=== PATIENT | male | born 1990 | race Caucasian/White ===

== ENCOUNTER 2018-10-12 12:58 | Emergency (ER) | payer BC, OTHER ==
[2018-10-12] MEDS ORDERED: Sodium Chloride 0.9% 1,000 ML IV ONE (13:23)
[2018-10-12 14:28] LABS: BLOOD UREA NITROGEN,BUN 14 mg/dL (7.0-18.0); CARBON DIOXIDE,CO2 30.1 mmol/L (21.0-32.0); CHLORIDE,CL 106 mmol/L (98-107); GLUCOSE RANDOM 85 mg/dL (74-106); LIPASE 81 U/L (73-393); POTASSIUM,K 4.1 mmol/L (3.5-5.1); SODIUM,NA 142 mmol/L (136-148)
[2018-10-12 14:40] VITALS: BP 107/60; PULSE 74
[2018-10-12] MEDS ORDERED: Iopamidol 755 Mg/ML 100 ML Bottle IVPUSH ONE (15:04)
--- NOTE | 2018-10-12 15:17 | CT ---
HISTORY: Right lower quadrant pain. Rectal bleeding. TECHNIQUE: Intravenous contrast enhanced CT of the abdomen and pelvis. 100 mL of Isovue-370 intravenous contrast administered. COMPARISON: No prior. FINDINGS: There is fatty infiltration of the liver. There is no focal liver mass. No biliary ductal dilatation. Gallbladder does not appear overly distended. Mild splenomegaly the spleen measuring 14 cm. Adrenal glands normal. No focal pancreatic abnormality. Symmetric nephrograms. No renal mass or hydronephrosis. Urinary bladder is not optimally evaluated by CT but appears grossly unremarkable. - No small bowel obstruction. Appendix is absent. No diverticulitis or definite colitis. No fluid collection or free air. No abdominal aortic aneurysm. Small mesenteric lymph nodes are likely reactive. - Minor subpleural atelectasis within the lung bases. - No acute bony abnormality. IMPRESSION: 1. No specific identified cause of the patient`s symptoms. 2. Appendix is absent. 3. Mild splenomegaly. 4. Mild fatty infiltration of the liver. 5. Small mesenteric lymph nodes are likely reactive. Dictated by Faheem Stallings MD @ 10/12/2018 3:14:49 PM Please note that all CT scans at this facility use dose modulation, iterative reconstruction, and/or weight-based dosing when appropriate to reduce radiation dose to as low as reasonably achievable. Dictated by: Faheem Stallings MD @ 10/12/2018 15:14:55 (Electronically Signed)
--- NOTE | 2018-10-12 15:40 | EDM.PDOC ---
ED HPI GENERAL MEDICAL PROBLEM - General Chief Complaint: Gastrointestinal Problem Stated Complaint: STOMACH PROBLEMS Time Seen by Provider: 10/12/18 13:06 Source of Information: Reports: Patient History Limitations: Reports: No Limitations - History of Present Illness INITIAL COMMENTS - FREE TEXT/NARRATIVE: HISTORY AND PHYSICAL: History of present illness: Patient is a 28-year-old male presents to the ED today for concern of blood in the stool and vague lower abdominal pain. Patient states about 2 days ago he had one episode of bright red blood in his stool but that it had gone away. Patient states just a few hours prior to arrival to the ED he's been having vague nonsevere 2 out of 10 lower abdominal pain. Patient states he then had a more significant episode of blood in his stool today which gave him anxiety so he came to the ED. Patient states the blood in his stool was bright red and he is unable to quantify how much but states that it was a large amount for him. Patient states the consistency and frequency of his bowel movements has been normal per his usual. Patient denies any health history and states he has never had this occur before. Patient denies any other symptoms or concerns. Patient has had a history of appendectomy. Patient denies fever, chills, chest pain, shortness of breath, or cough. Denies headache, neck stiff ness, change in vision, syncope, or near syncope. Denies nausea, vomiting, diarrhea, constipation, or dysuria. Has not noted any blood in urine. Patient has been eating and drinking appropriately. Review of systems: As per history of present illness and below otherwise all systems reviewed and negative. Past medical history: As per history of present illness and as reviewed below otherwise noncontributory. Surgical history: As per history of present illness and as reviewed below otherwise noncontributory. Social history: See social history for further information Family history: As per history of present illness and as reviewed below otherwise noncontributory. Physical exam: General: Patient is alert, oriented, and in no acute distress. Patient sitting comfortably on exam table. HEENT: Atraumatic, normocephalic, pupils equal and reactive bilaterally, negative for conjunctival pallor or scleral icterus, mucous membranes moist, TMs normal bilaterally, throat clear, neck supple, nontender, trachea midline. No drooling or trismus noted. No meningeal signs. No hot potato voice noted. Lungs: Clear to auscultation, breath sounds equal bilaterally, chest nontender. Heart: S1S2, regular rate and rhythm without overt murmur Abdomen: Soft, nondistended, nontender. Negative for masses or hepatosplenomegaly. Negative for costovertebral tenderness. Pelvis: Stable nontender. Genitourinary: Deferred. Rectal: Sphincter tone intact. No masses noted of the rectum. No obvious external hemorrhoids visualized. Patient does have gross bright red blood surrounding the rectum. No internal hemorrhoid noted. Positive Hemoccult Skin: Intact, warm, dry. No lesions or rashes noted. Extremities: Atraumatic, negative for cords or calf pain. Neurovascular unremarkable. Neuro: Awake, alert, oriented. Cranial nerves II through XII unremarkable. Cerebellum unremarkable. Motor and sensory unremarkable throughout. Exam nonfocal. Notes: Dr. Taylor verbally involved in patient care. Discussed the importance for follow-up with general surgery. Official referral has been placed to the patient in the ED. Voices understanding and is agreeable to plan of care. Denies any further questions or concerns at this time. Diagnostics: CBC, CMP, UA, PT/INR, Shaw[place], abdominal pelvic CT, lipase, Hemoccult Therapeutics: Saline Prescription: None Impression: Roe blood in stool Lower abdominal pain, unspecified Mild splenomegaly via imaging Mild fatty infiltrate of liver via imaging Mesenteric lymphadenitis, unspecified, via imaging Plan: 1. You can use Tylenol as directed for pain and discomfort. 2. Follow-up with general surgery and her primary care provider as discussed. The information for General surgery has been provided above for you; call number above for appointment. 3. Return to the ED as needed and as discussed. Definitive disposition and diagnosis as appropriate pending reevaluation and review of above. Lower Abdominal Pain Score (Numeric/FACES): 4 - Related Data Allergies Allergy/AdvReac Type Severity Reaction Status Date / Time No Known Allergies Allergy Verified 10/12/18 13:14 Home Meds: Home Meds . [No Known Home Meds] 10/12/18 [History] Past Medical History HEENT History: Reports: Impaired Vision Other HEENT History: wears glasses Cardiovascular History: Reports: None Respiratory History: Reports: None Gastrointestinal History: Reports: None Genitourinary History: Reports: None Musculoskeletal History: Reports: None Other Musculoskeletal History: ACL Neurological History: Reports: None Psychiatric History: Reports: None Endocrine/Metabolic History: Reports: None Hematologic History: Reports: None Immunologic History: Reports: None Oncologic (Cancer) History: Reports: None Dermatologic History: Reports: None - Infectious Disease History Infectious Disease History: Reports: Chicken Pox - Past Surgical History Head Surgeries/Procedures: Reports: None HEENT Surgical History: Reports: Other (See Below) Musculoskeletal Surgical History: Reports: Other (See Below) Social & Family History - Family History Family Medical History: Noncontributory - Tobacco Use Smoking Status *Q: Current Every Day Smoker Years of Tobacco use: 5 Packs/Tins Daily: 1 - Caffeine Use Caffeine Use: Reports: Soda - Recreational Drug Use Recreational Drug Use: No ED ROS GENERAL - Review of Systems Review Of Systems: ROS reveals no pertinent complaints other than HPI. ED EXAM, GENERAL - Physical Exam Exam: See Below (See dictation) Course - Vital Signs Last Recorded V/S: Last Vital Signs Temp 36.0 C 10/12/18 14:39 Pulse 74 10/12/18 14:39 Resp 18 10/12/18 14:39 BP 107/60 10/12/18 14:39 Pulse Ox 99 10/12/18 14:39 - Orders/Labs/Meds Orders: Active Orders 24 hr Category Date Time Status Hemoccult [Fecal Occult Blood Collection] [RC] Care 10/12/18 13:24 Active ASDIRECTED MONONUCLEOSIS SCREEN [CHEM] Stat Lab 10/12/18 15:30 Ordered Labs: Laboratory Tests 10/12/18 10/12/18 10/12/18 Range/Units 13:42 13:58 13:58 WBC 6.73 (4.0-11.0) K/uL RBC 5.16 (4.50-5.90) M/uL Hgb 16.0 (13.0-17.0) g/dL Hct 43.5 (38.0-50.0) % MCV 84.3 (80.0-98.0) fL MCH 31.0 (27.0-32.0) pg MCHC 36.8 (31.0-37.0) g/dL RDW Std Deviation 40.9 (28.0-62.0) fl RDW Coeff of Pearl 14 (11.0-15.0) % Plt Count 245 (150-400) K/uL MPV 10.00 (7.40-12.00) fL Neut % (Auto) 55.8 (48.0-80.0) % Lymph % (Auto) 35.8 (16.0-40.0) % [place] % (Auto) 6.5 (0.0-15.0) % Eos % (Auto) 1.5 (0.0-7.0) % Baso % (Auto) 0.4 (0.0-1.5) % Neut # (Auto) 3.8 (1.4-5.7) K/uL Lymph # (Auto) 2.4 (0.6-2.4) K/uL Shaw[place] # (Auto) 0.4 (0.0-0.8) K/uL Eos # (Auto) 0.1 (0.0-0.7) K/uL Baso # (Auto) 0.0 (0.0-0.1) K/uL INR Sodium 142 (136-148) mmol/L Potassium 4.1 (3.5-5.1) mmol/L Chloride 106 (98-107) mmol/L Carbon Dioxide 30.1 (21.0-32.0) mmol/L BUN 14 (7.0-18.0) mg/dL Creatinine 1.2 (0.8-1.3) mg/dL Est Cr Clr Drug Dosing 98.80 mL/min Estimated GFR (MDRD) > 60.0 ml/min Glucose 85 (74-106) mg/dL Calcium 10.1 (8.5-10.1) mg/dL Total Bilirubin 0.6 (0.2-1.0) mg/dL AST 20 (15-37) IU/L ALT 29 (14-63) IU/L Alkaline Phosphatase 103 (46-116) U/L Total Protein 8.0 (6.4-8.2) g/dL Albumin 4.5 (3.4-5.0) g/dL Globulin 3.5 (2.6-4.0) g/dL Albumin/Globulin Ratio 1.3 (0.9-1.6) Lipase 81 (73-393) U/L Urine Color YELLOW Urine Appearance CLEAR Urine pH 7.0 (5.0-8.0) Ur Specific [place] 1.010 (1.001-1.035) Urine Protein NEGATIVE (NEGATIVE) mg/dL Urine Glucose (UA) NEGATIVE (NEGATIVE) mg/dL Urine Ketones NEGATIVE (NEGATIVE) mg/dL Urine Occult Blood NEGATIVE (NEGATIVE) Urine Nitrite NEGATIVE (NEGATIVE) Urine Bilirubin NEGATIVE (NEGATIVE) Urine Urobilinogen 0.2 (<2.0) EU/dL Ur Leukocyte Esterase NEGATIVE (NEGATIVE) 10/12/18 Range/Units 13:58 WBC (4.0-11.0) K/uL RBC (4.50-5.90) M/uL Hgb (13.0-17.0) g/dL Hct (38.0-50.0) % MCV (80.0-98.0) fL MCH (27.0-32.0) pg MCHC (31.0-37.0) g/dL RDW Std Deviation (28.0-62.0) fl RDW Coeff of Pearl (11.0-15.0) % Plt Count (150-400) K/uL MPV (7.40-12.00) fL Neut % (Auto) (48.0-80.0) % Lymph % (Auto) (16.0-40.0) % [place] % (Auto) (0.0-15.0) % Eos % (Auto) (0.0-7.0) % Baso % (Auto) (0.0-1.5) % Neut # (Auto) (1.4-5.7) K/uL Lymph # (Auto) (0.6-2.4) K/uL [place] # (Auto) (0.0-0.8) K/uL Eos # (Auto) (0.0-0.7) K/uL Baso # (Auto) (0.0-0.1) K/uL INR 1.03 Sodium (136-148) mmol/L Potassium (3.5-5.1) mmol/L Chloride (98-107) mmol/L Carbon Dioxide (21.0-32.0) mmol/L BUN (7.0-18.0) mg/dL Creatinine (0.8-1.3) mg/dL Est Cr Clr Drug Dosing mL/min Estimated GFR (MDRD) ml/min Glucose (74-106) mg/dL Calcium (8.5-10.1) mg/dL Total Bilirubin (0.2-1.0) mg/dL AST (15-37) IU/L ALT (14-63) IU/L Alkaline Phosphatase (46-116) U/L Total Protein (6.4-8.2) g/dL Albumin (3.4-5.0) g/dL Globulin (2.6-4.0) g/dL Albumin/Globulin Ratio (0.9-1.6) Lipase (73-393) U/L Urine Color Urine Appearance Urine pH (5.0-8.0) Ur Specific [place] (1.001-1.035) Urine Protein (NEGATIVE) mg/dL Urine Glucose (UA) (NEGATIVE) mg/dL Urine Ketones (NEGATIVE) mg/dL Urine Occult Blood (NEGATIVE) Urine Nitrite (NEGATIVE) Urine Bilirubin (NEGATIVE) Urine Urobilinogen (<2.0) EU/dL Ur Leukocyte Esterase (NEGATIVE) Meds: Medications Discontinued Medications Generic Name Dose Route Start Last Admin Trade Name Freq PRN Reason Stop Dose Admin Sodium Chloride 1,000 mls @ 999 mls/hr 10/12/18 13:23 10/12/18 13:55 Normal Saline IV 10/12/18 14:23 999 mls/hr BOLUS ONE Administration Iopamidol 100 ml 10/12/18 15:04 10/12/18 15:04 Isovue-370 (76%) IVPUSH 10/12/18 15:05 100 ml ONETIME ONE Administration Departure - Departure Time of Disposition: 15:39 Disposition: Home, Self-Care 01 Clinical Impression: Reo blood in stool, Lower abdominal pain, Splenomegaly, Fatty infiltration of liver, Mesenteric lymphadenitis - Discharge Information Instructions: Enlarged Spleen, Abdominal Pain, Adult, [id number] Referrals: Brent Peters [Ordering Only Provider] - Forms: ED Department Discharge Additional Instructions: The following information is given to patients seen in the emergency department who are being discharged to home. This information is to outline your options for follow-up care. We provide all patients seen in our emergency department with a follow-up referral. The need for follow-up, as well as the timing and circumstances, are variable depending upon the specifics of your emergency department visit. If you don't have a primary care physician on staff, we will provide you with a referral. We always advise you to contact your personal physician following an emergency department visit to inform them of the circumstance of the visit and for follow-up with them and/or the need for any referrals to a consulting specialist. The emergency department will also refer you to a specialist when appropriate. This referral assures that you have the opportunity for follow-up care with a specialist. All of these measure are taken in an effort to provide you with optimal care, which includes your follow-up. Under all circumstances we always encourage you to contact your private physician who remains a resource for coordinating your care. When calling for follow-up care, please make the office aware that this follow-up is from your recent emergency room visit. If for any reason you are refused follow-up, please contact the [facility] Emergency Department at and asked to speak to the emergency department charge nurse. [facility] [address] [place] [address] [place] [address] [facility] - General Surgery Professional [facility] [address] [place] [address], [address] [place] [address] 1. You can use Tylenol as directed for pain and discomfort. 2. Follow-up with general surgery and her primary care provider as discussed. The information for General surgery has been provided above for you; call number above for appointment. 3. Return to the ED as needed and as discussed. - My Orders Last 24 Hours: My Active Orders 10/12/18 13:24 Hemoccult [Fecal Occult Blood Collection] [RC] ASDIRECTED 10/12/18 15:30 MONONUCLEOSIS SCREEN [CHEM] Stat - Assessment/Plan Last 24 Hours: My Active Orders 10/12/18 13:24 Hemoccult [Fecal Occult Blood Collection] [RC] ASDIRECTED 10/12/18 15:30 MONONUCLEOSIS SCREEN [CHEM] Stat
== END 2018-10-12 15:48 | disposition home or self-care (01) ==
LOC: MW.ED 12:58
DX: K76.0 Fatty (change of) liver, not elsewhere classified (principal); R16.1 Splenomegaly, not elsewhere classified; I88.0 Nonspecific mesenteric lymphadenitis; K92.1 Melena; F17.210 Nicotine dependence, cigarettes, uncomplicated
CPT/HCPCS: 36415; 74177; 80053; 81003; 83690; 85025; 85610; 86308; 96360; 99284; J7040; Q9967

== ENCOUNTER 2020-03-28 15:41 | Emergency (ER) | payer BC, OTHER ==
[2020-03-28] MEDS ORDERED: Lactated Ringers 1,000 ML IV ONE (16:14)
[2020-03-28 16:45] LABS: BLOOD UREA NITROGEN,BUN 9 mg/dL (7.0-18.0); CHLORIDE,CL 106 mmol/L (98-107); GLUCOSE RANDOM 100 mg/dL (74-106); POTASSIUM,K 3.7 mmol/L (3.5-5.1); SODIUM,NA 142 mmol/L (136-148)
[2020-03-28] MEDS ORDERED: Iopamidol 755 MG/ML 500 ML Multipack Bottle IVPUSH ONE (17:49)
--- NOTE | 2020-03-28 18:16 | CT ---
INDICATION: Headache, neck pain. TECHNIQUE: After standard noncontrast head CT, high resolution axial CT images acquired through the head and neck following rapid intravenous administration of iodinated contrast. Multiplanar MIPS of cranial and cervical vasculature performed. COMPARISON: None. FINDINGS: Noncontrast head CT: There is no intracranial hemorrhage or fluid collection. The hernandez-white matter differentiation is maintained. The ventricles are of normal morphology. The basal cisterns are clear. CTA head: There is normal filling of the intracranial vasculature; i.e. there is no large vessel occlusion or intracranial stenosis. There is no cerebral aneurysm or evidence for vascular malformation. Maxillary sinus mucous retention cysts are incidentally noted. CTA neck: The left internal carotid artery is tortuous and redundant. There is no carotid or vertebral artery stenosis or dissection. The soft tissues of the neck are within normal limits. The cervical spine is in normal alignment. The lung apices are clear. IMPRESSION: Maxillary mucous retention cysts. Tortuous and redundant left ICA. Otherwise unremarkable CT head, CTA head and neck. Keyur Mckenna MD Neurointerventional Radiologist [facility] [facility] Please note that all CT scans at this facility use dose modulation, iterative reconstruction, and/or weight-based dosing when appropriate to reduce radiation dose to as low as reasonably achievable. Dictated by Keyur Mckenna MD @ Mar 28 2020 6:09PM Signed by Dr. Keyur Mckenna @ Mar 28 2020 6:15PM
[2020-03-28] MEDS ORDERED: diphenhydrAMINE 50 MG/ML SDV IVPUSH ONE (18:27)
[2020-03-28] MEDS ORDERED: Dexamethasone 10 MG/ML SDV IVPUSH ONE (18:27)
[2020-03-28] MEDS ORDERED: Ketorolac 30 MG/ML SDV IVPUSH ONE (18:27)
[2020-03-28] MEDS ORDERED: Prochlorperazine 10 MG/2 ML SDV IVPUSH ONE (18:27)
--- NOTE | 2020-03-28 19:12 | EDM.PDOC ---
ED HPI GENERAL MEDICAL PROBLEM - General Chief Complaint: Headache Stated Complaint: DIZZY SPELLS,BLURRY VISION Time Seen by Provider: 03/28/20 15:53 - History of Present Illness INITIAL COMMENTS - FREE TEXT/NARRATIVE: CHIEF COMPLAINT(S): Headache HISTORY OF PRESENT ILLNESS: This is a 29-year-old man without any past medical history who comes to the emergency department with a chief complaint of headache. The patient states that approximately 3 days ago he started to have these dizzy spells where his vision would get blurry and he would get lightheaded he would have to sit down. He states that these episodes last appro ximately 30 minutes. He states that he is only had one on Sunday and one today. He states that after these episodes he starts to get a headache which is located behind his right eye and right forehead. He describes it as 6 out of 10 and throbbing. He denies any radiation, numbness, tingling, weakness. He denies any trouble walking speaking or swallowing. He states that he took ibuprofen the first time and it had gone down after about 45 minutes. He states the headache then goes away. He states that he was feeling fine this morning when the second episode happened he was just playing with his kids and was standing and watching TV when he had the similar symptoms. He states that there is a family history of migraines in his mother and grandmother and denies any family history of aneurysm. He denies any history of CAD, CHF, recent travel, recent surgery, prior history of DVT or PE. He denies any family history of clotting disorders. He states that his friend is a pathologist and he recommended coming in for evaluation for possible carbon monoxide in addition to his symptoms. REVIEW OF SYSTEMS: Constitutional: Denies fever, chills. Eyes: Denies eye pain Ears, Nose, Mouth, & Throat: Denies earache Cardiovascular: Denies chest pain Respiratory: Denies shortness of breath Gastrointestinal: Denies Nausea, vomiting, diarrhea, hematochezia. Genitourinary: Denies hematuria Skin:Denies a rash Neurological: Positive for headache and dizziness. Denies numbness, tingling, weakness. Positive for blurred vision. Denies diplopia Psychiatric: Denies depression PAST MEDICAL HISTORY: As per history of present illness and as reviewed below otherwise noncontributory. SURGICAL HISTORY: As per history of present illness and as reviewed below otherwise noncontributory. SOCIAL HISTORY: As per history of present illness and as reviewed below otherwise noncontributory. FAMILY HISTORY: As per history of present illness and as reviewed below otherwise noncontributory. EXAMINATION OF ORGAN SYSTEMS/BODY AREAS: Constitutional: Pressure was 128/73, heart rate 70, respiratory rate 16 with an oxygen saturation 97% on room air. Temperature 36.1 General: Overall well-appearing man who is in no acute distress. Psychiatric: Appropriate mood and affect. Eyes: No scleral icterus or conjunctival erythema pupils were equal and round and reactive to light. Extraocular movements were intact. No vertical or horizontal nystagmus. Visual acuity with corrective lenses was 20/40 bilaterally. ENMT: Moist mucous membranes. No pharyngeal erythema nasal turbinates clear. Cardiovascular: Regular, rate, and rhythm. No gallops, murmurs, or rubs. Bilateral upper extremity pulses symmetric and intact. No peripheral edema. No JVD. Respiratory: Lungs clear to auscultation bilaterally. No wheezes, rales, or rhonchi. Gastrointestinal: Soft, non-tender, non-distended. Normoactive bowel sounds Genitourinary: No suprapubic tenderness Musculoskeletal: Normal range of motion. Skin: No lesions or abrasions. Neurological: AOx4. CN grossly intact. Stregth 5/5 in bilateral upper and lower extremity. Sensation is intact bilaterally in upper and lower extremity. Gait appears normal. Finger to nose, heel to paiz, rapid alternating movements intact. MEDICAL DECISION MAKING AND COURSE IN THE ED WITH INTERPRETATION/REVIEW OF DIAGNOSTIC STUDIES: This is a 29-year-old man without any significant past medical history who comes to the emergency department with right-sided headache associated with dizziness and blurry vision prior to the headache who has normal vital signs and a normal neurological examination. At this time given his family history of migraines it is likely a migraine however we will undergo a cardiac work-up in addition we will also obtain CT head and CTA of the head and neck to evaluate for any abnormality including aneurysm. We will provide the patient with 1 L of lactated Ringer's bolus. I did have a discussion that I would like to refrain from treatment at this time until he obtain CTs. We will obtain a carboxyhemoglobin. EKG was obtained which did not reveal any acute signs of ischemia. I also perform a bedside ultrasound to evaluate for cardiac activity, pericardial effusion, or or aortic pathology. Twelve-lead EKG interpreted by myself. Normal sinus rhythm at a rate of 61beats per minute. Normal axis. ID interval is 124ms. QRS duration is 95ms. ST segments are normal without elevations or depressions. No Q waves present. Hypertrophy not noted. There is a T wave inversion in lead III. Interpretation: Normal sinus rhythm with nonspecific T wave inversion. There were no prior EKGs in our system to compare this to. Laboratory: CBC is unremarkable. BMP is unremarkable. Magnesium normal. Troponin is negative. Covid is negative. Carboxyhemoglobin is 1.8. The radiological images were viewed by myself along with reading the report from the radiologist. CT head without contrast does not reveal any acute intracranial hemorrhage or fluid collection. No abnormality. CTA of the head and neck reveals normal filling of the intracranial vasculature no large vessel occlusion or stenosis. There is no cerebral aneurysm or vascular malformation. There is incidental maxillary sinus mucosal retention cyst. Bedside cardiac ultrasound revealed a normal ejection fraction with no obvious wall motion abnormalities, evidence of right heart strain, or pericardial effusion. Bedside aortic ultrasound does not reveal any aortic aneurysm throughout the length. After imaging I did discuss the results with the patient. I discussed with him at this time I like to treat him symptomatically and reevaluate him. He was amenable to this plan. After period of observation the patient stated that his headache had improved. I did discuss with him at this time I do believe this is secondary to a migraine. I discussed the importance of following up with his primary care physician and possibly a neurologist for further evaluation. He was amenable to discharge at this time and had no further questions. The patient is to return for new or worsening symptoms DISPOSITION: The patient was discharged home in stable condition. The patient will follow up with PCP or neurology within 1 week CONDITION: Fair PROCEDURES: None FINAL IMPRESSION(S)/DIAGNOSES: 1. Acute ocular migraine Jesse Luong M.D. headache Pain Score (Numeric/FACES): 6 - Related Data Allergies Allergy/AdvReac Type Severity Reaction Status Date / Time No Known Allergies Allergy Verified 03/28/20 16:18 Home Meds: Home Meds . [No Known Home Meds] 10/12/18 [History] Past Medical History HEENT History: Reports: Impaired Vision Other HEENT History: wears glasses Cardiovascular History: Reports: None Respiratory History: Reports: None Gastrointestinal History: Reports: None Genitourinary History: Reports: None Musculoskeletal History: Reports: None Other Musculoskeletal History: ACL Neurological History: Reports: None Psychiatric History: Reports: None Endocrine/Metabolic History: Reports: None Hematologic History: Reports: None Immunologic History: Reports: None Oncologic (Cancer) History: Reports: None Dermatologic History: Reports: None - Infectious Disease History Infectious Disease History: Reports: Chicken Pox - Past Surgical History Head Surgeries/Procedures: Reports: None HEENT Surgical History: Reports: Other (See Below) Other HEENT Surgeries/Procedures: neck biopsy as a child Cardiovascular Surgical History: Reports: None Respiratory Surgical History: Reports: None GI Surgical History: Reports: Appendectomy Male Surgical History: Reports: None Endocrine Surgical History: Reports: None Neurological Surgical History: Reports: None Musculoskeletal Surgical History: Reports: Other (See Below) Other Musculoskeletal Surgeries/Procedures:: ACL repair left knee 2003, A/C joint reconstruction June 11, 2015 Social & Family History - Family History Family Medical History: No Pertinent Family History - Caffeine Use Caffeine Use: Reports: Soda - Recreational Drug Use Recreational Drug Use: No ED ROS GENERAL - Review of Systems Review Of Systems: See Below ED EXAM, GENERAL - Physical Exam Exam: See Below Course - Vital Signs Last Recorded V/S: Last Vital Signs Temp 36.6 C 03/28/20 19:26 Pulse 60 03/28/20 19:26 Resp 16 03/28/20 19:26 BP 116/80 03/28/20 19:26 Pulse Ox 98 03/28/20 19:26 - Orders/Labs/Meds Labs: Laboratory Tests 03/28/20 03/28/20 03/28/20 Range/Units 16:09 16:09 16:42 WBC 6.03 (4.0-11.0) K/uL RBC 5.25 (4.50-5.90) M/uL Hgb 16.3 (13.0-17.0) g/dL Hct 46.7 (38.0-50.0) % MCV 89.0 (80.0-98.0) fL MCH 31.0 (27.0-32.0) pg MCHC 34.9 (31.0-37.0) g/dL RDW Std Deviation 41.2 (28.0-62.0) fl RDW Coeff of Pearl 13 (11.0-15.0) % Plt Count 199 (150-400) K/uL MPV 10.70 (7.40-12.00) fL Neut % (Auto) 48.2 (48.0-80.0) % Lymph % (Auto) 41.5 H (16.0-40.0) % [place] % (Auto) 9.3 (0.0-15.0) % Eos % (Auto) 0.7 (0.0-7.0) % Baso % (Auto) 0.3 (0.0-1.5) % Neut # (Auto) 2.9 (1.4-5.7) K/uL Lymph # (Auto) 2.5 H (0.6-2.4) K/uL [place] # (Auto) 0.6 (0.0-0.8) K/uL Eos # (Auto) 0.0 (0.0-0.7) K/uL Baso # (Auto) 0.0 (0.0-0.1) K/uL Nucleated RBC % 0.0 /100WBC Nucleated RBCs # 0 K/uL ABG Carboxyhemoglobin (0-15) % Sodium 142 (136-148) mmol/L Potassium 3.7 (3.5-5.1) mmol/L Chloride 106 (98-107) mmol/L Carbon Dioxide 29.0 (21.0-32.0) mmol/L BUN 9 (7.0-18.0) mg/dL Creatinine 1.1 (0.8-1.3) mg/dL Est Cr Clr Drug Dosing 106.80 mL/min Estimated GFR (MDRD) > 60.0 ml/min Glucose 100 (74-106) mg/dL Calcium 9.4 (8.5-10.1) mg/dL Magnesium 2.0 (1.8-2.4) mg/dL Troponin I < 0.050 (0.000-0.056) ng/mL SARS-CoV-2 RNA (JESSICA) NEGATIVE (NEGATIVE) 03/28/20 Range/Units 18:20 WBC (4.0-11.0) K/uL RBC (4.50-5.90) M/uL Hgb (13.0-17.0) g/dL Hct (38.0-50.0) % MCV (80.0-98.0) fL MCH (27.0-32.0) pg MCHC (31.0-37.0) g/dL RDW Std Deviation (28.0-62.0) fl RDW Coeff of Pearl (11.0-15.0) % Plt Count (150-400) K/uL MPV (7.40-12.00) fL Neut % (Auto) (48.0-80.0) % Lymph % (Auto) (16.0-40.0) % [place] % (Auto) (0.0-15.0) % Eos % (Auto) (0.0-7.0) % Baso % (Auto) (0.0-1.5) % Neut # (Auto) (1.4-5.7) K/uL Lymph # (Auto) (0.6-2.4) K/uL [place] # (Auto) (0.0-0.8) K/uL Eos # (Auto) (0.0-0.7) K/uL Baso # (Auto) (0.0-0.1) K/uL Nucleated RBC % /100WBC Nucleated RBCs # K/uL ABG Carboxyhemoglobin 1.8 (0-15) % Sodium (136-148) mmol/L Potassium (3.5-5.1) mmol/L Chloride (98-107) mmol/L Carbon Dioxide (21.0-32.0) mmol/L BUN (7.0-18.0) mg/dL Creatinine (0.8-1.3) mg/dL Est Cr Clr Drug Dosing mL/min Estimated GFR (MDRD) ml/min Glucose (74-106) mg/dL Calcium (8.5-10.1) mg/dL Magnesium (1.8-2.4) mg/dL Troponin I (0.000-0.056) ng/mL SARS-CoV-2 RNA (JESSICA) (NEGATIVE) Meds: Medications Discontinued Medications Generic Name Dose Route Start Last Admin Trade Name Freq PRN Reason Stop Dose Admin Dexamethasone 10 mg 03/28/20 18:27 03/28/20 18:43 Decadron IVPUSH 03/28/20 18:28 10 mg ONETIME ONE Administration Diphenhydramine HCl 50 mg 03/28/20 18:27 03/28/20 18:44 Benadryl IVPUSH 03/28/20 18:28 50 mg ONETIME ONE Administration Lactated Ringer's 1,000 mls @ 999 mls/hr 03/28/20 16:14 03/28/20 16:38 Ringers, Lactated IV 03/28/20 17:14 999 mls/hr .BOLUS ONE Administration Iopamidol 100 ml 03/28/20 17:49 03/28/20 17:50 Isovue Multipack-370 (76%) IVPUSH 03/28/20 17:50 100 ml ONETIME ONE Administration Ketorolac Tromethamine 30 mg 03/28/20 18:27 03/28/20 18:44 Toradol IVPUSH 03/28/20 18:28 30 mg ONETIME ONE Administration Prochlorperazine Edisylate 5 mg 03/28/20 18:27 03/28/20 18:43 Compazine IVPUSH 03/28/20 18:28 5 mg ONETIME ONE Administration Departure - Departure Time of Disposition: 19:11 Disposition: Home, Self-Care 01 Condition: Fair Clinical Impression: Ocular migraine - Discharge Information *PRESCRIPTION DRUG MONITORING PROGRAM REVIEWED*: No *COPY OF PRESCRIPTION DRUG MONITORING REPORT IN PATIENT MELISA: No Instructions: Recurrent Migraine Headache, Kyin-bo-Rrbg [facility] - Forms: ED Department Discharge Additional Instructions: Your evaluated today on an emergent basis. Please use [id number] Tylenol and Motrin for continued headache. If you have any worsening of your headache or development of vomiting please return to the emergency department. Please follow-up with your primary care physician for a referral for neurology for migraines given that it does run in your family. [facility] [address] [place] [id number] [facility] [address] [place] [address] The patient is informed of any results of their evaluation and diagnostic workup and all questions are answered. They are given discharge instructions and return precautions. The patient is stable for discharge. The patient states they understand and agree with the plan and that they will return if their symptoms get worse or if they have any new concerns. The following information is given to patients seen in the emergency department who are being discharged to home. This information is to outline your options for follow-up care. We provide all patients seen in our emergency department with a follow-up referral. The need for follow-up, as well as the timing and circumstances, are variable depending upon the specifics of your emergency department visit. If you don't have a primary care physician on staff, we will provide you with a referral. We always advise you to contact your personal physician following an emergency department visit to inform them of the circumstance of the visit and for follow-up with them and/or the need for any referrals to a consulting specialist. The emergency department will also refer you to a specialist when appropriate. This referral assures that you have the opportunity for follow-up care with a specialist. All of these measure are taken in an effort to provide you with optimal care, which includes your follow-up. Under all circumstances we always encourage you to contact your private physician who remains a resource for coordinating your care. When calling for follow-up care, please make the office aware that this follow-up is from your recent emergency room visit. If for any reason you are refused follow-up, please contact the [facility] Emergency Department at and asked to speak to the emergency department charge nurse. Sepsis Event Note (ED) - Evaluation Sepsis Screening Result: No Definite Risk - Focused Exam Vital Signs: Vital Signs Temp Pulse Resp BP Pulse Ox 03/28/20 19:26 36.6 C 60 16 116/80 98 03/28/20 17:49 54 L 14 107/68 96 03/28/20 16:01 36.1 C 70 16 128/73 97
[2020-03-28 19:28] VITALS: BP 116/80; PULSE 60
== END 2020-03-28 19:26 | disposition home or self-care (01) ==
LOC: MW.ED 15:41
DX: G43.B0 Ophthalmoplegic migraine, not intractable (principal); Z20.822 Contact with and (suspected) exposure to COVID-19
CPT/HCPCS: 36415; 70450; 70496; 70498; 80048; 82375; 83735; 84484; 85025; 87635; 93005; 96374; 96375; 99284; J0780; J1100; J1200; J1885; J7120; Q9967; 93010; U0002

== ENCOUNTER 2024-07-03 15:41 | Emergency (ER) | payer BC, OTHER ==
[2024-07-03 15:55] VITALS: BP 120/74; PULSE 72
[2024-07-03] MEDS: Acetaminophen 500 MG Tab PO ONE (19:19)
== END 2024-07-03 20:25 | disposition left against medical advice (07) ==
LOC: MW.ED 15:41
DX: S80.02XA Contusion of left knee, initial encounter (principal); Z90.49 Acquired absence of other specified parts of digestive tract; W18.40XA Slipping, tripping and stumbling without falling, unspecified, initial encounter
CPT/HCPCS: 73562-26-LT; 73562-LT; 73590-26-LT; 73590-LT; 73700-26-LT; 73700-LT; 99283; 99284; A9270-GY